=== PATIENT | male | born 2005 | race Two or more races ===

== ENCOUNTER 2025-06-25 11:23 | Outpatient (CLI) | payer MEDICAID ==
--- NOTE | 2025-06-25 13:02 | RADIOLOGY REPORT ---
PROCEDURE: MR MRI HEAD Indication: LOCAL-REL SYMPTC EPI W CMPLX PRT SEIZ,NOT NTRCT,W/O STAT EPI COMPARISON: None TECHNIQUE: Multiplanar multisequence images of the brain are obtained. FINDINGS: There is no abnormal diffusion restriction. There is no intracranial hemorrhage. No extra-axial fluid collection, mass effect or midline shift. The ventricles are midline and normal in size. The cisterns are patent. Normal intracranial flow voids are preserved. No abnormal susceptibility signal. No evidence for increased T2 signal within the medial temporal lobes. No hippocampal atrophy. The sinuses and mastoids are well pneumatized. The visualized orbits are unremarkable. IMPRESSION: No acute intracranial abnormality.
== END 2025-06-25 23:59 | disposition home or self-care (01) ==
LOC: MRI02 11:23
PROVIDERS: ATTEND Neuromusculoskeletal Medicine & OMM
DX: G40.209 Localization-related (focal) (partial) symptomatic epilepsy and epileptic syndromes with complex partial seizures, not intractable, without status epilepticus (principal)
CPT/HCPCS: 70551